=== PATIENT | female | born 1965 | race Caucasian/White ===

== ENCOUNTER 2021-04-09 11:57 | Emergency (ER) | payer BC ==
[2021-04-09 12:12] VITALS: BP 110/75; TEMP 98.7
[2021-04-09] MEDS: BAMLANIVIMAB (EUA) 700 MG, ETESEVIMAB (EUA) 1,400 MG in SODIUM CHLORIDE 0.9% 100 ML IVPB ONE (12:39)
--- NOTE | 2021-04-09 12:51 | ED ---
General Adult HPI - General Stated complaint: Covid+/BAM, cancer pt Time Seen by Provider: 04/09/21 11:59 Source: patient, RN notes reviewed Mode of arrival: ambulatory Limitations: no limitations - History of Present Illness Initial comments: This is a 55-year-old female presents emergency Department with chief complaint of COVID-19. Patient states she is here for monoclonal antibodies. Patient is under treatment for cancer. Patient states she has had symptoms for last 5 days. Patient states she's had fevers chills but his cough congestion. Patient's significant other is also positive. - Related Data Allergies Allergy/AdvReac Type Severity Reaction Status Date / Time erythromycin base Allergy Rash/Hives Verified 04/09/21 12:13 Penicillins Allergy Unknown Verified 04/09/21 12:13 Childhood Review of Systems ROS Statement: Those systems with pertinent positive or pertinent negative responses have been documented in the HPI. ROS Other: All systems not noted in ROS Statement are negative. Past Medical History Past Medical History: Cancer Additional Past Medical History / Comment(s): uterine CA. History of Any Multi-Drug Resistant Organisms: None Reported Additional Past Surgical History / Comment(s): Back surgery. Past Psychological History: Anxiety, Depression Smoking Status: Current every day smoker Past Alcohol Use History: Rare Past Drug Use History: Marijuana General Exam Limitations: no limitations General appearance: alert, in no apparent distress Head exam: Present: atraumatic, normocephalic, normal inspection Eye exam: Present: normal appearance, PERRL, EOMI. Absent: scleral icterus, conjunctival injection, periorbital swelling ENT exam: Present: normal exam, normal oropharynx, mucous membranes moist Neck exam: Present: normal inspection, full ROM. Absent: tenderness, meningismus, lymphadenopathy Respiratory exam: Present: normal lung sounds bilaterally. Absent: respiratory distress, wheezes, rales, rhonchi, stridor Cardiovascular Exam: Present: regular rate, normal rhythm, normal heart sounds. Absent: systolic murmur, diastolic murmur, rubs, gallop, clicks GI/Abdominal exam: Present: soft, normal bowel sounds. Absent: distended, tenderness, guarding, rebound, rigid Neurological exam: Present: alert, oriented X3 Skin exam: Present: warm, dry, intact, normal color. Absent: rash Course Vital Signs 04/09/21 12:04 Temperature 98.7 F Pulse Rate 94 Respiratory 18 Rate Blood Pressure 110/75 O2 Sat by Pulse 96 Oximetry Medical Decision Making - Medical Decision Making Issue recently monoclonal antibodies of the discharged in stable condition return parameters were discussed. Disposition Clinical Impression: COVID-19 Disposition: HOME SELF-CARE Condition: Stable Instructions (If sedation given, give patient instructions): Coronavirus Disease 2019 (COVID-19) Additional Instructions: Please return to the Emergency Department if symptoms worsen or any other concerns. Is patient prescribed a controlled substance at d/c from ED?: No Referrals: Suzan Watson DO [Primary Care Provider] - 1-2 days Time of Disposition: 12:51
[2021-04-09] MEDS: SODIUM CHLORIDE 0.9% 50 ML IVPB ONE (13:23)
[2021-04-09 14:16] VITALS: PULSE 78; RESP 16
== END 2021-04-09 14:16 | disposition home or self-care (01) ==
LOC: EC 11:57
DX: U07.1 COVID-19 (principal); C55 Malignant neoplasm of uterus, part unspecified; F17.200 Nicotine dependence, unspecified, uncomplicated; Z88.0 Allergy status to penicillin; Z88.1 Allergy status to other antibiotic agents
CPT/HCPCS: 99283; J3490

== ENCOUNTER 2021-04-13 15:19 | Emergency (ER) | payer BC ==
[2021-04-13 16:00] VITALS: BP 118/84; PULSE 82; RESP 18; TEMP 98.3
[2021-04-13] MEDS ORDERED: OXYMETAZOLINE 0.05% NASL SPRAY 1 SPRAY BOTTLE NASAL STA (17:51)
[2021-04-13 18:11] LABS: Basophils % (A) 1 %; Eosinophils % (A) 0 %; HCT 42.6 % (34.0-46.0); HGB 13.8 gm/dL (11.4-16.0); Lymphocytes # (A) 1.1 k/uL (1.0-4.8); Lymphocytes % (A) 23 %; MCH 27.7 pg (25.0-35.0); MCHC 32.3 g/dL (31.0-37.0); MCV 85.8 fL (80.0-100.0); Mean Platelet Volume 8.5; Monocytes # (A) 0.3 k/uL (0-1.0); Monocytes % (A) 6 %; Neutrophils # (A) 3.1 k/uL (1.3-7.7); Neutrophils % (A) 68 %; Platelet Count 192 k/uL (150-450); RBC 4.96 m/uL (3.80-5.40); RDW 14.5 % (11.5-15.5); WBC 4.5 k/uL (3.8-10.6)
[2021-04-13 18:27] LABS: ALT 22 U/L (4-34); AST 26 U/L (14-36); African American GFR (CKD) >90 (>60 ml/min/1.73 sqM); Albumin 4.5 g/dL (3.5-5.0); Alkaline Phosphatase 110 U/L (38-126); Anion Gap 11 mmol/L; Blood Urea Nitrogen 12 mg/dL (7-17); Calcium 9.3 mg/dL (8.4-10.2); Carbon Dioxide 23 mmol/L (22-30); Chloride 106 mmol/L (98-107); Glucose 107 mg/dL (74-99); Non-African American GFR(CKD) >90 (>60 ml/min/1.73 sqM); Potassium 4.1 mmol/L (3.5-5.1); Sodium 140 mmol/L (137-145); Total Bilirubin 0.5 mg/dL (0.2-1.3); Total Protein 7.7 g/dL (6.3-8.2)
[2021-04-13 18:30] LABS: INR 0.9 (<1.2); Partial Thromboplastin Time 24.1 sec (22.0-30.0)
[2021-04-13] MEDS ORDERED: TRANEXAMIC ACID 1,000 MG/10 ML VIAL IRRIGATION STA (18:51)
--- NOTE | 2021-04-13 18:53 | ED ---
General Adult HPI - General Chief complaint: ENT Stated complaint: nosebleed Time Seen by Provider: 04/13/21 17:40 Source: patient Mode of arrival: ambulatory - History of Present Illness Initial comments: 55 year-old female patient presents to the emergency department for evaluation of nose bleed. States bleeding started around 0300 this morning. States it has been on and off all day. Denies history of nose bleeds or nasal trauma. States she recently had COVID. She did go to [facility] but wait was too long so they came here. Patient has had clamp on for several hours. States when she takes it off she is still bleeding. She denies dizziness or weakness. She was recently diagnosed with endometrial cancer but has not started treatment yet. Denies use of blood thinning medications. - Related Data Previous Rx's Medication Instructions Recorded Doxycycline [Vibramycin] 100 mg PO BID #10 capsule 04/13/21 Allergies Allergy/AdvReac Type Severity Reaction Status Date / Time erythromycin base Allergy Rash/Hives Verified 04/13/21 16:00 Penicillins Allergy Unknown Verified 04/13/21 16:00 Childhood Review of Systems ROS Statement: Those systems with pertinent positive or pertinent negative responses have been documented in the HPI. ROS Other: All systems not noted in ROS Statement are negative. Past Medical History Past Medical History: Cancer Additional Past Medical History / Comment(s): uterine CA. History of Any Multi-Drug Resistant Organisms: None Reported Additional Past Surgical History / Comment(s): Back surgery. Past Psychological History: Anxiety, Depression Smoking Status: Current every day smoker Past Alcohol Use History: Rare Past Drug Use History: Marijuana General Exam General appearance: alert, in no apparent distress, other (This is a well- developed, well-nourished adult female in no acute distress.) ENT exam: Present: normal oropharynx, mucous membranes moist, other (bleeding from left nosril) Respiratory exam: Present: normal lung sounds bilaterally. Absent: respiratory distress, wheezes, rales, rhonchi, stridor Cardiovascular Exam: Present: regular rate, normal rhythm, normal heart sounds. Absent: systolic murmur, diastolic murmur, rubs, gallop, clicks Neurological exam: Present: alert, oriented X3, CN II-XII intact Psychiatric exam: Present: normal affect, normal mood Skin exam: Present: warm, dry, intact, normal color. Absent: rash Course Vital Signs 04/13/21 15:54 Temperature 98.3 F Pulse Rate 82 Respiratory 18 Rate Blood Pressure 118/84 O2 Sat by Pulse 95 Oximetry Procedures - Procedures Initial comment: 6cm merocel nasal tampon inserted into left nostril, passed easily. 20cc saline instilled into nostril to expand the packing. Pt tolerated procedure well. Medical Decision Making - Medical Decision Making 55 year-old female patient presents to the emergency department for evaluation of nose bleed since 0300 this morning. Physical exam showed bleeding from the left nostril. Unable to locate source of bleeding with otoscope examination. Did attempt afrin instillation and afrin soaked gauze packing with clamping for 30 minutes. This was unsuccessful so used topical TXA with clamping for 20 minutes. Bleeding continued. Did attempt to insert rapid rhino, unable to pass further than half way. 6cm merocel placed to the left nare. Bleeding cessation achieved. Patient discharged to follow up with ENT specialist for further evaluation as soon as possible. She is given doxycycline for prevention of infection. Return parameters were discussed in detail. She verbalizes understanding and agrees with this plan. My attending is Dr. Benson. - Lab Data Result diagrams: 04/13/21 18:01 04/13/21 18:01 Lab Results 04/13/21 04/13/21 04/13/21 Range/Units 18:01 18:01 18:01 WBC 4.5 (3.8-10.6) k/uL RBC 4.96 (3.80-5.40) m/uL Hgb 13.8 (11.4-16.0) gm/dL Hct 42.6 (34.0-46.0) % MCV 85.8 (80.0-100.0) fL MCH 27.7 (25.0-35.0) pg MCHC 32.3 (31.0-37.0) g/dL RDW 14.5 (11.5-15.5) % Plt Count 192 (150-450) k/uL MPV 8.5 Neutrophils % 68 % Lymphocytes % 23 % Monocytes % 6 % Eosinophils % 0 % Basophils % 1 % Neutrophils # 3.1 (1.3-7.7) k/uL Lymphocytes # 1.1 (1.0-4.8) k/uL Monocytes # 0.3 (0-1.0) k/uL Eosinophils # 0.0 (0-0.7) k/uL Basophils # 0.0 (0-0.2) k/uL PT 10.0 (9.0-12.0) sec INR 0.9 (<1.2) APTT 24.1 (22.0-30.0) sec Sodium 140 (137-145) mmol/L Potassium 4.1 (3.5-5.1) mmol/L Chloride 106 (98-107) mmol/L Carbon Dioxide 23 (22-30) mmol/L Anion Gap 11 mmol/L BUN 12 (7-17) mg/dL Creatinine 0.55 (0.52-1.04) mg/dL Est GFR (CKD-EPI)AfAm >90 (>60 ml/min/1.73 sqM) Est GFR (CKD-EPI)NonAf >90 (>60 ml/min/1.73 sqM) Glucose 107 H (74-99) mg/dL Calcium 9.3 (8.4-10.2) mg/dL Total Bilirubin 0.5 (0.2-1.3) mg/dL AST 26 (14-36) U/L ALT 22 (4-34) U/L Alkaline Phosphatase 110 (38-126) U/L Total Protein 7.7 (6.3-8.2) g/dL Albumin 4.5 (3.5-5.0) g/dL Disposition Clinical Impression: Epistaxis Disposition: HOME SELF-CARE Condition: Good Instructions (If sedation given, give patient instructions): Nosebleed (ED) Additional Instructions: (ENT specialist as soon as possible. Call in the morning for an appointment. Complete antibiotic prescription and full to prevent infection. Return to the emergency department for any new, worsening, or concerning symptoms. Prescriptions: Doxycycline [Vibramycin] 100 mg PO BID #10 capsule Is patient prescribed a controlled substance at d/c from ED?: No Referrals: Suzan Watson DO [Primary Care Provider] - 1-2 days PETER Finney [Other] - 1-2 days Time of Disposition: 20:04
[2021-04-13] MEDS ORDERED: BACITRACIN OINT 1 EACH PACKET TOPICAL STA (19:50)
[2021-04-13] MEDS ORDERED: DOXYCYCLINE 100 MG CAP PO STA (20:02)
== END 2021-04-13 20:30 | disposition home or self-care (01) ==
LOC: EC 15:19
DX: R04.0 Epistaxis (principal); F17.200 Nicotine dependence, unspecified, uncomplicated; Z88.1 Allergy status to other antibiotic agents; Z88.0 Allergy status to penicillin; Z86.16 Personal history of COVID-19
CPT/HCPCS: 36415; 80053; 85025; 85610; 85730; 99283